=== PATIENT | male | born 1950 | race Hispanic/Latino ===

== ENCOUNTER → 2017-07-28 | Day surgery (SDC) | payer BC ==
[~2017-07-28] MED LIST: ADVAIR 250-501 EACH INH; ALBUTEROL0.63 MG/3 INH; FENTANYL CITRATE/PF 100MCG/2 ML INJ ONE; FLONASE; MIDAZOLAM HCL 2 MG/2 ML VIAL ONE; OR PHACO EYE KIT ONE; PREOP PHACO EYE KIT ONE; XYZAL5 MG PO
== END | disposition home or self-care (01) ==
LOC: OR 11:06
PROVIDERS: ATTEND Ophthalmology
DX: H25.12 Age-related nuclear cataract, left eye (principal); J45.909 Unspecified asthma, uncomplicated; R06.83 Snoring
CPT/HCPCS: 66984; J2250; V2632